=== PATIENT | female | born 1965 | race Hispanic/Latino ===

== ENCOUNTER 2019-09-01 15:07 | Emergency (ER) | payer MEDICAID, OTHER ==
[2019-09-01] MEDS ORDERED: ONDANSETRON HCL 4 MG/2 ML VIAL ONE ×2 (15:30→17:29)
[2019-09-01] MEDS ORDERED: MORPHINE SULFATE 4 MG/1ML SYG ONE ×2 (15:30→17:26)
[2019-09-01 15:50] LABS: BASOPHILS % (AUTO) 0.5 % (0.0-5.0); EOSINOPHILS % (AUTO) 3.2 % (0.0-8.0); HEMATOCRIT 43.4 % (36-48); MEAN CORPUSCULAR HEMOGLOBIN 29.6 pg (27.0-33.0); MEAN CORPUSCULAR HGB CONC 33.9 g/dL (32.0-36.0); MEAN CORPUSCULAR VOLUME 87.3 fL (79-99); MONOCYTES % (AUTO) 8.4 % (3.0-13.0); NEUTROPHILS % (AUTO) 69.6 % (40.0-77.0); PLATELET COUNT (AUTO) 34 K/uL (130-400); RED BLOOD CELL COUNT(AUTO) 4.97 MIL/uL (4.00-5.50); RED CELL DISTRIBUTION WIDTH 14.3 % (11.0-15.5); WHITE BLOOD COUNT (AUTO) 6.2 K/uL (4.8-10.8)
[2019-09-01 17:14] LABS: CREATININE 1.1 mg/dL (0.5-1.5)
[2019-09-01] MEDS ORDERED: IOHEXOL 350 MG/ML 100ML INFUS..BTL IV ONE (17:27)
[2019-09-01 17:36] LABS: ALBUMIN 2.9 g/dL (3.5-5.0); BILIRUBIN,TOTAL 0.7 mg/dL (0.2-1.0); TOTAL PROTEIN, SERUM 7.1 g/dL (6.0-8.3)
== END 2019-09-01 19:07 | disposition home or self-care (01) ==
LOC: EDH 15:07
DX: S02.2XXA Fracture of nasal bones, initial encounter for closed fracture (principal); S30.1XXA Contusion of abdominal wall, initial encounter; S20.212A Contusion of left front wall of thorax, initial encounter; D69.6 Thrombocytopenia, unspecified; R74.0 Nonspecific elevation of levels of transaminase and lactic acid dehydrogenase [LDH]; Y04.2XXA Assault by strike against or bumped into by another person, initial encounter; Y93.89 Activity, other specified; Y92.89 Other specified places as the place of occurrence of the external cause; Y99.8 Other external cause status
CPT/HCPCS: 36415; 70450; 70486; 71045; 71260; 72125; 74177; 80053; 83690; 84484; 84702; 85025; 93005; 96374; 96375; 96376; 99285; J2270 ×2; J2405 ×2; Q9967

== ENCOUNTER 2019-09-24 15:06 | Emergency (ER) | payer SELFPAY | END 2019-09-24 16:19 | disposition home or self-care (01) | LOC: EDH 15:06 | DX: R04.0 Epistaxis (principal); Z88.1 Allergy status to other antibiotic agents ==

== ENCOUNTER → 2021-05-16 | Emergency (ER) | payer OTHER ==
[~2021-05-16] VITALS: Ht 157.5 cm; Wt 86.2 kg
[~2021-05-16] MED LIST: ALPR1TAB2 PO; CETI10CA5 PO
[2021-05-16 13:10] VITALS: BP 148/82
== END | disposition left against medical advice (07) ==
LOC: EDH 13:04
DX: N99.522 Malfunction of incontinent external stoma of urinary tract (principal); Z53.21 Procedure and treatment not carried out due to patient leaving prior to being seen by health care provider

== ENCOUNTER → 2021-05-22 | Outpatient (CLI) | payer OTHER, SELFPAY ==
[~2021-05-22] MED LIST changes: +ZOSYN 3.375GM +NS 50ML IV PRN
[2021-05-22 15:24] LABS: BASOPHILS % (AUTO) 0.3 % (0.0-5.0); EOSINOPHILS % (AUTO) 4.7 % (0.0-8.0); HEMATOCRIT 38.2 % (36-48); LYMPHOCYTES % (AUTO) 29.6 % (21.0-51.0); MEAN CORPUSCULAR HEMOGLOBIN 27.2 pg (27.0-33.0); MEAN CORPUSCULAR HGB CONC 32.2 g/dL (32.0-36.0); MEAN CORPUSCULAR VOLUME 84.5 fL (79-99); MONOCYTES % (AUTO) 11.1 % (3.0-13.0); NEUTROPHILS % (AUTO) 54.3 % (40.0-77.0); PLATELET COUNT (AUTO) 37 K/uL (130-400); RED BLOOD CELL COUNT(AUTO) 4.52 MIL/uL (4.00-5.50)
[2021-05-22 15:31] LABS: CREATININE 1.2 mg/dL (0.5-1.5); POTASSIUM 3.9 mmol/L (3.5-5.1)
[2021-05-22 15:33] LABS: APPEARANCE,URINE Turbid (CLEAR); BILIRUBIN,URINE Negative (NEGATIVE); COLOR,URINE Yellow (YELLOW); GLUCOSE, URINE (UA) Negative (NEGATIVE); KETONES,URINE Negative (NEGATIVE); LEUKOCYTE ESTERASE ,URINE Large (NEGATIVE); NITRATE,URINE Positive (NEGATIVE); OCCULT BLOOD,URINE Moderate (NEGATIVE); PROTEIN,URINE 300 mg/dL (NEGATIVE); UROBILINOGEN,URINE 0.2 mg/dL (0.2-1.0)
[2021-05-22 15:35] LABS: INR 0.96 (0.85-1.15); PROTHROMBIN TIME 10.5 SEC (9.6-11.6)
[2021-05-22 15:36] LABS: PARTIAL THROMBOPLASTIN TIME 26.8 SEC (26.3-35.5)
[2021-05-22 16:23] LABS: BACTERIA,URINE Many /HPF (None Seen); WBC,URINE 51-100 /HPF (0-1)
[2021-05-22 18:04] LABS: EOSINOPHILS % (MANUAL) 6 % (1-6); LYMPHOCYTES % (MANUAL) 48 % (22-44); MAN.DIFF COMMENT-IMPRESSION MANUAL DIFFERENTIAL; MONOCYTES % (MANUAL) 15 % (2-9); SEGMENTED NEUTROPHILS % 31 % (40-70)
== END | disposition home or self-care (01) ==
LOC: DAH 10:00 → EDSTATUS 13:00
PROVIDERS: ATTEND Urology
DX: U07.1 COVID-19 (principal); Z01.812 Encounter for preprocedural laboratory examination; N20.0 Calculus of kidney
CPT/HCPCS: 36415; 80048; 81001; 85025; 85610; 85730; 87088; 87426; A6260

== ENCOUNTER → 2021-06-04 | Outpatient (CLI) | payer OTHER ==
[2021-06-01 13:54] LABS: BASOPHILS % (AUTO) 0.8 % (0.0-5.0); EOSINOPHILS % (AUTO) 4.6 % (0.0-8.0); HEMATOCRIT 37.5 % (36-48); LYMPHOCYTES % (AUTO) 24.8 % (21.0-51.0); MEAN CORPUSCULAR HEMOGLOBIN 27.1 pg (27.0-33.0); MEAN CORPUSCULAR HGB CONC 31.7 g/dL (32.0-36.0); MEAN CORPUSCULAR VOLUME 85.4 fL (79-99); MONOCYTES % (AUTO) 8.5 % (3.0-13.0); NEUTROPHILS % (AUTO) 61.1 % (40.0-77.0); PLATELET COUNT (AUTO) 157 K/uL (130-400); RED BLOOD CELL COUNT(AUTO) 4.39 MIL/uL (4.00-5.50); RED CELL DISTRIBUTION WIDTH 13.8 % (11.0-15.5); WHITE BLOOD COUNT (AUTO) 5.2 K/uL (4.8-10.8)
[2021-06-01 13:58] LABS: APPEARANCE,URINE Cloudy (CLEAR); BILIRUBIN,URINE Negative (NEGATIVE); COLOR,URINE Yellow (YELLOW); GLUCOSE, URINE (UA) Negative (NEGATIVE); KETONES,URINE Negative (NEGATIVE); LEUKOCYTE ESTERASE ,URINE Large (NEGATIVE); NITRATE,URINE Positive (NEGATIVE); OCCULT BLOOD,URINE Nonhemolyzed Trace (NEGATIVE); PH,URINE 6.5 (5.0-8.0); PROTEIN,URINE POS 2+ mg/dL (NEGATIVE)
[2021-06-01 14:03] LABS: CREATININE 1.3 mg/dL (0.5-1.5); POTASSIUM 4.2 mmol/L (3.5-5.1)
[2021-06-01 14:05] LABS: PROTHROMBIN TIME 10.9 SEC (9.6-11.6)
[2021-06-01 14:07] LABS: PARTIAL THROMBOPLASTIN TIME 26.5 SEC (26.3-35.5)
[2021-06-01 14:13] LABS: BACTERIA,URINE Moderate /HPF (None Seen); RBC,URINE 0-1 /HPF (0-1)
[~2021-06-04] VITALS: Ht 157.5 cm; Wt 89.9 kg
[~2021-06-04] MED LIST changes: -ZOSYN 3.375GM +NS 50ML IV PRN
[2021-06-04 08:15] VITALS: BP 135/90
== END | disposition home or self-care (01) ==
LOC: EDSTATUS 06-01 11:00 → DAH 07:42
PROVIDERS: ATTEND Urology
DX: N20.0 Calculus of kidney (principal); Z79.899 Other long term (current) drug therapy; Z98.890 Other specified postprocedural states; Z79.01 Long term (current) use of anticoagulants; Z53.8 Procedure and treatment not carried out for other reasons
CPT/HCPCS: 36415; 80048; 81001; 85025; 85610; 85730; 87088

== ENCOUNTER 2023-01-16 09:52 | Emergency (ER) | payer BC, OTHER ==
[~2023-01-16] VITALS: Ht 157.5 cm; Wt 90.7 kg
[2023-01-16] MEDS ORDERED: IBUP-2070 PO (11:25)
[2023-01-16] MEDS ORDERED: AMOX1TAB16 PO (11:25)
[2023-01-16] MEDS ORDERED: CORTSOL OTIC (11:25)
[2023-01-16] MEDS ORDERED: PRED20TA3 PO (11:25)
[2023-01-16] MEDS ORDERED: KETOROLAC 60 MG VIAL (30MG/ML) IM ONE (11:30)
[2023-01-16] MEDS ORDERED: AMOX/CLAV 875/125MG TAB PO ONE (11:30)
[2023-01-16 11:44] VITALS: BP 170/99; PULSE 68; RESP 16; O2SAT 98
== END 2023-01-16 11:44 | disposition home or self-care (01) ==
LOC: EDH 09:52
DX: H60.92 Unspecified otitis externa, left ear (principal); Z88.1 Allergy status to other antibiotic agents
CPT/HCPCS: 99284; 96372; J1885

== ENCOUNTER → 2024-07-19 | Outpatient (CLI) | payer OTHER ==
[~2024-07-19] MED LIST changes: +AMOX1TAB16 PO; +CORTSOL OTIC; +IBUP-2070 PO; +PRED20TA3 PO
--- NOTE | 2024-07-19 16:48 | HMCIMG ---
Exam Type: KNEE/PATELLA 1-2VWS RT Clinical Information: ARTHRITIS, DISLOCATED SHOULDER Comparison: None Findings: The bone examination is unremarkable. No fractures or dislocations are seen. No radiopaque foreign bodies are noted. Soft tissues are preserved. IMPRESSION: Normal examination.
--- NOTE | 2024-07-19 16:49 | HMCIMG ---
Exam Type: SHOULDER COMP 2+VWS RT Clinical Information: ARTHRITIS, DISLOCATED SHOULDER Comparison: None FINDINGS and impression: Erosion of the distal portion of the clavicle which may represent rheumatoid arthritis or some other autoimmune disease. No acute fractures or dislocations.
--- NOTE | 2024-07-19 16:58 | HMCIMG ---
Exam Type: WRIST 2VWS RT Clinical Information: ARTHRITIS, DISLOCATED SHOULDER Comparison: None Findings: The bone examination is unremarkable. No fractures or dislocations are seen. No radiopaque foreign bodies are noted. Soft tissues are preserved. IMPRESSION: Normal examination.
== END | disposition home or self-care (01) ==
LOC: RAH 15:16
PROVIDERS: ATTEND Internal Medicine
DX: S43.001A Unspecified subluxation of right shoulder joint, initial encounter (principal); M94.8X1 Other specified disorders of cartilage, shoulder; M13.80 Other specified arthritis, unspecified site; X58.XXXA Exposure to other specified factors, initial encounter; Y93.89 Activity, other specified; Y92.89 Other specified places as the place of occurrence of the external cause; Y99.8 Other external cause status
CPT/HCPCS: 73030; 73100; 73560